=== PATIENT | female | born 1965 | race Caucasian/White ===

== ENCOUNTER 2018-09-26 00:10 | Observation (INO) | payer SELFPAY ==
[2018-09-26 00:36] VITALS: BMI 34.8
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
[2018-09-26] MEDS ORDERED: ACETAMINOPHEN 325 MG TABLET (FP) PO ONE (00:59)
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
[2018-09-26] MEDS ORDERED: ACETAMINOPHEN 325 MG TABLET (FP) ONE (01:03)
[2018-09-26] MEDS ORDERED: morphine CARPU-JECT 4 MG/1 ML DISP.SYRIN IVPUSH ONE (01:59)
[2018-09-26] MEDS ORDERED: morphine SULFATE 4 MG/ML VIAL ONE (02:04)
[2018-09-26 02:15] LABS: HEMATOCRIT 36.4 % (32.4-45.2); HEMOGLOBIN 12.5 GM/dL (10.7-15.3); MCH 31.3 pg (25.7-33.7); MCHC 34.3 g/dl (32.0-36.0); MEAN CELL VOLUME 91.3 fl (80-96); MEAN PLT VOLUME 8.2 fl (7.5-11.1); PLATELET COUNT 227 K/MM3 (134-434); RBC 3.99 M/mm3 (3.60-5.2); RDW 12.9 % (11.6-15.6); WHITE BLOOD COUNT 5.6 K/mm3 (4.0-10.0)
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
[2018-09-26 02:43] LABS: ALK PHOS 109 U/L (45-117); ANION GAP 7 MMOL/L (8-16); BILIRUBIN,TOTAL 0.7 mg/dL (0.2-1); BLOOD UREA NITROGEN 8 mg/dL (7-18); CALCIUM 9.2 mg/dL (8.5-10.1); CHLORIDE 105 mmol/L (98-107); CO2 26 mmol/L (21-32); CREATININE 0.4 mg/dL (0.55-1.3); GLUCOSE,RANDOM 108 mg/dL (74-106); POTASSIUM 3.6 mmol/L (3.5-5.1); SGOT/AST 89 U/L (15-37); SGPT/ALT 123 U/L (13-61); SODIUM 138 mmol/L (136-145); TOT PROT 7.7 g/dl (6.4-8.2)
[2018-09-26] MEDS ORDERED: MORPHINE SULFATE 2 MG/ML VIAL IVPUSH PRN (03:16)
[2018-09-26] MEDS ORDERED: IBUPROFEN 600 MG TABLET (FP) PO PRN (03:16)
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
--- NOTE | 2018-09-26 10:12 | CONSULT ---
Consult - text type - Consultation Consultation Note: ORTHOPEDIC SURGERY CONSULTATION NOTE Department of Orthopedic Surgery HISTORY OF PRESENT ILLNESS Mily Orellana is a 53 year old left hand dominant female who presents to [facility] with left shoulder pain. The orthopedic service was consulted for left sided clavicle fracture. The injury occurred yesterday after a fall. The patient notes pain over the clavicle. Denies any other injuries. Denies head trauma or LOC. Denies shortness of breath, numbness, tingling or other constitutional complaints. Denies tobacco use, drug use, alcohol abuse. The patient lives with her sister and uses no assistive devices at baseline. Active Problems Problem Status Category Onset Closed left clavicular fracture Acute Medical Left shoulder pain Acute Medical Social History Smoking history Never smoked Hx Alcohol Use No Allergies Allergy/AdvReac Type Severity Reaction Status Date / Time No Known Allergies Allergy Verified 09/26/18 00:48 Active Medications Generic Name Dose Route Start Last Admin Trade Name Freq PRN Reason Stop Dose Admin Ibuprofen 600 mg 09/26/18 03:16 Motrin - PO Q8H PRN Pain Level 4 - 7 Morphine Sulfate 2 mg 09/26/18 03:16 09/26/18 07:50 Morphine Sulfate IVPUSH 2 mg Q4H PRN Administration PAIN LEVEL 7 - 10 Vital Signs (last) Temp Pulse Resp BP Pulse Ox 97.8 F 64 17 118/70 97 09/26/18 04:43 09/26/18 04:43 09/26/18 04:43 09/26/18 04:43 09/26/18 04:43 Intake and Output 09/24/18 09/25/18 09/26/18 23:59 23:59 23:59 Other: Voiding Method Toilet # Unmeasured Voids Void 1 Weight 161 lb Height 4 ft 9 in Body Mass Index (BMI) 34.8 Weight Measurement Method Standing Scale Laboratory 09/26/18 02:05 09/26/18 02:05 FAMILY HISTORY Unknown REVIEW OF SYMPTOMS A twelve-point review of systems was performed and was negative except as noted in HPI. PHYSICAL EXAM Constitutional: Alert and oriented to person, place, and time. Appears well- developed and well-nourished. No acute distress, appropriate mood and affect. HEENT: Normocephalic, atraumatic Cardiovascular: Regular rate and rhythm, extremities warm, no cyanosis. Pulmonary: Breathing comfortably, normal air movement, no audible wheezing. Right Upper Extremity: No tenderness to palpation. Full passive and active ROM, free from pain. Left Upper Extremity: Swelling and ecchymosis present over the clavicle and anterior chest wall. Skin warm, dry, and intact; no skin tenting. No rashes or ulcers noted. Muscle mass equal and symmetric to contralateral side. No atrophy noted. Tender to palpation at left clavicle; nontender throughout rest of extremity. Full passive and active ROM, free from pain. Joints stable with no pathologic laxity. M/R/U/MSK/AX motor intact; SILT distally; 2+ radial pulses; Cap refill brisk. Right Lower Extremity: No tenderness to palpation. Full passive and active ROM, free from pain. Left Lower Extremity: No tenderness to palpation. Full passive and active ROM, free from pain. IMAGING I personally reviewed radiographs of the left shoulder and clavicle. They demonstrate a comminuted and displaced midshaft clavicle fracture. ASSESSMENT AND PLAN Mily Orellana is a 53 year old female presenting status post fall with a nondominant left sided clavicle fracture. We have reviewed the imaging and clinical findings in detail, as well as their potential implications. We discussed operative and nonoperative treatment in detail, as well as the risks and benefits of each. After informed discussion the patient has elected to proceed with nonoperative management. - No orthopedic intervention at this time. - Non weight bearing on LUE - Patient was instructed regarding signs and symptoms of compartment syndrome and need to seek immediate care should new onset difficulty breathing, numbness , tingling, or significantly increasing pain occur.. - Maintain sling - Avoid NSAID medications All questions were answered. Thank you for involving our team in the care of this patient. Please have patient follow up in our office in 1 week .
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
[2018-09-26 14:11] VITALS: BP 135/88; PULSE 77; TEMP 98.3
--- NOTE | 2018-09-26 19:51 | DS ---
Physical Exam: SUBJECTIVE: Patient seen and examined Patient is a 53yo Female with no PMHx presented to Ed. for having left shoulder pain. Patient stated that she a mechanical fall on a bus on her left side. Patient c/o having left shoulder pain in a sling. was seen by the orthopedic MD this morning. translated by Nico deputy [employer] marshal who speaks fluent Frisian. OBJECTIVE: Vital Signs Temperature 98.3 F 09/26/18 14:10 Pulse Rate 77 09/26/18 14:10 Respiratory Rate 20 09/26/18 09:15 Blood Pressure 135/88 09/26/18 14:10 O2 Sat by Pulse Oximetry (%) 95 09/26/18 10:32 Initial Vital Signs Temp Pulse Resp BP Pulse Ox 98.2 F 90 20 165/95 99 09/26/18 00:23 09/26/18 00:23 09/26/18 00:23 09/26/18 00:23 09/26/18 00:23 GENERAL: The patient is awake, alert, and fully oriented, in no acute distress. HEAD: Normal with no signs of trauma. EYES: PERRL, extraocular movements intact, sclera anicteric, conjunctiva clear. ENT: Ears normal, oropharynx clear without exudates, moist mucous membranes. NECK: Trachea midline, supple. decreased ROM of left shoulder/clavicle due to fracture. LUNGS: Breath sounds equal, clear to auscultation bilaterally, no wheezes, no crackles, no accessory muscle use. HEART: Regular rate and rhythm, S1, S2 without murmur, rub or gallop. ABDOMEN: Soft, nontender, nondistended, normoactive bowel sounds, no guarding, no rebound, no hepatosplenomegaly, no masses. EXTREMITIES: 2+ pulses, warm, well-perfused, no edema. Right Upper Extremity: No tenderness to palpation. Full passive and active ROM, Left Upper Extremity: Swelling and ecchymosis present over the clavicle and anterior chest wall. No atrophy noted. Tender to palpation at left clavicle. NEUROLOGICAL: Cranial nerves II through XII grossly intact. Normal speech, gait is steady. PSYCH: Normal mood, normal affect. SKIN: Warm, dry, normal turgor, no rashes or lesions noted. LABS CBCD WBC 5.6 K/mm3 (4.0-10.0) 09/26/18 02:05 RBC 3.99 M/mm3 (3.60-5.2) 09/26/18 02:05 Hgb 12.5 GM/dL (10.7-15.3) 09/26/18 02:05 Hct 36.4 % (32.4-45.2) 09/26/18 02:05 MCV 91.3 fl (80-96) 09/26/18 02:05 MCHC 34.3 g/dl (32.0-36.0) 09/26/18 02:05 RDW 12.9 % (11.6-15.6) 09/26/18 02:05 Plt Count 227 K/MM3 (134-434) 09/26/18 02:05 MPV 8.2 fl (7.5-11.1) 09/26/18 02:05 CMP Sodium 138 mmol/L (136-145) 09/26/18 02:05 Potassium 3.6 mmol/L (3.5-5.1) 09/26/18 02:05 Chloride 105 mmol/L (98-107) 09/26/18 02:05 Carbon Dioxide 26 mmol/L (21-32) 09/26/18 02:05 Anion Gap 7 MMOL/L (8-16) L 09/26/18 02:05 BUN 8 mg/dL (7-18) 09/26/18 02:05 Creatinine 0.4 mg/dL (0.55-1.3) L 09/26/18 02:05 Creat Clearance w eGFR 166.34 (>60) 09/26/18 02:05 Random Glucose 108 mg/dL (74-106) H 09/26/18 02:05 Calcium 9.2 mg/dL (8.5-10.1) 09/26/18 02:05 Total Bilirubin 0.7 mg/dL (0.2-1) 09/26/18 02:05 AST 89 U/L (15-37) H 09/26/18 02:05 ALT 123 U/L (13-61) H 09/26/18 02:05 Alkaline Phosphatase 109 U/L (45-117) 09/26/18 02:05 Total Protein 7.7 g/dl (6.4-8.2) 09/26/18 02:05 Albumin 4.0 g/dl (3.4-5.0) 09/26/18 02:05 Home Medications Medication Instructions Recorded Oxycodone HCl 5 mg PO Q4H #18 tablet MDD 6 09/26/18 Current Medications Generic Name Dose Route Start Last Admin Trade Name Freq PRN Reason Stop Dose Admin Ibuprofen 600 mg 09/26/18 03:16 Motrin - PO Q8H PRN Pain Level 4 - 7 Morphine Sulfate 2 mg 09/26/18 03:16 09/26/18 07:50 Morphine Sulfate IVPUSH 2 mg Q4H PRN Administration PAIN LEVEL 7 - 10 CXr: clear lungs , left clavicular fracture as per radiology Xray of left shoulder and clavicles: Left shoulder comminuted clavicular fracture with seperation of major fragments. #left clavicular mid shaft fracture ; Ac joint is intact HOSPITAL COURSE: Date of Admission:09/26/18 Date of Discharge: 09/26/18 # Left shoulder comminuted clavicular fracture with seperation of major fragments. #left clavicular mid shaft fracture ; Ac joint is intact discussed with ortho in details, patient can go home since managment is conservatively on oxycodone if doesn't imptove then might need surgery follow up an appointment was given within a week - No orthopedic intervention at this time. - Non weight bearing on LUE - Patient was instructed regarding signs and symptoms of compartment syndrome and need to seek immediate care should new onset difficulty breathing, numbness , tingling, or significantly increasing pain occur.. - Maintain sling - Avoid NSAID medications follow up in ortho office in 1 week [phone]. Minutes to complete discharge: 40 Discharge Summary Reason For Visit: CLOSED FRACTURE OF LEFT CLAVICLE Condition: Stable - Instructions Diet, Activity, Other Instructions: Keep the sling on at all the time. prescribed an oral pain medication Oxycodone 5mg every 4 hours as needed for pain, this medication will make you drowsy, please do not drive or operate any machinary. You will follow with orthopedic doctor within a week to reassess your improvement and he will also do an shoulder Xray to check the healing process. Also will re-evaluate if you need surgery or not. At this time you are managed conservatively. If you develop severe pain, numbness or tingling, come back to the emergency room and also call the orthopedic doctor that you saw in the hospital. The name and address is provided to you. Please drink lots of fluid/water. since your liver enzymes are elevated. Do not take Tylenol at this time can worsen your liver enzymes. Referrals: Omi Larsen DO [Staff Physician] - 1 Week Disposition: HOME - Home Medications Comprehensive Discharge Medication List: Ambulatory Orders Oxycodone HCl 5 mg PO Q4H #18 tablet MDD 6 09/26/18
--- NOTE | 2018-09-28 10:25 | EKG ---
Test Reason : Blood Pressure : / mmHG Vent. Rate : 071 BPM Atrial Rate : 071 BPM P-R Int : 140 ms QRS Dur : 078 ms QT Int : 402 ms P-R-T Axes : 041 -03 011 degrees QTc Int : 436 ms NORMAL SINUS RHYTHM INFERIOR INFARCT , AGE UNDETERMINED ABNORMAL ECG WHEN COMPARED WITH ECG OF 30-SEP-2000 22:41, INFERIOR INFARCT IS NOW PRESENT T WAVE VARIATION Confirmed by BISHNU GARZON, MIR ([id number]) on 09/28/2018 10:25:06 AM Referred By: Confirmed By:MIR GOETZ MD
== END 2018-09-26 17:40 | disposition home or self-care (01) ==
LOC: JER 00:10 → JERBED 02:28 → J6S 04:29
PROVIDERS: ADMIT Internal Medicine; ATTEND Internal Medicine
PROC: 3E033NZ Introduction of Analgesics, Hypnotics, Sedatives into Peripheral Vein, Percutaneous Approach (ICD-10-PCS; principal; 2018-09-26)
DX: S42.022A Displaced fracture of shaft of left clavicle, initial encounter for closed fracture (principal); W18.09XA Striking against other object with subsequent fall, initial encounter; Y93.I9 Activity, other involving external motion; Y92.488 Other paved roadways as the place of occurrence of the external cause
CPT/HCPCS: 36415; 71045-TC-FY; 73000-TC-LT-FY; 73030-TC-LT-FY; 80053; 85027; 93005; 93010; 99285-25; G0378

== ENCOUNTER 2019-01-05 16:04 | Emergency (ER) | payer OTHER ==
[2019-01-05 16:26] VITALS: BP 154/88; PULSE 77; TEMP 98.3; BMI 32.4
[2019-01-05] MEDS ORDERED: SODIUM CHLORIDE 1,000 ML IV STA (16:26)
[2019-01-05] MEDS ORDERED: ONDANSETRON 4 MG/2 ML VIAL IVPUSH ONE (16:26)
[2019-01-05] MEDS ORDERED: MECLIZINE HCL 25 MG TABLET (FP) PO ONE (16:26)
--- NOTE | 2019-01-05 16:30 | PDOC ---
Rapid Medical Evaluation Chief Complaint: Headache Time Seen by Provider: 01/05/19 16:23 Medical Evaluation: Allergies Allergy/AdvReac Type Severity Reaction Status Date / Time No Known Allergies Allergy Verified 01/05/19 16:24 Vital Signs Temp Pulse Resp BP Pulse Ox 98.3 F 77 16 154/88 97 01/05/19 16:24 01/05/19 16:24 01/05/19 16:24 01/05/19 16:24 01/05/19 16:24 01/05/19 16:29 Pt c/o: dizziness with nausea since this am, feels as if room is spinning, also c/o mild gen throbbing headache Pt on brief exam: vss, no acute distress Pt ordered for: labs, ekg, head ct, urine, meclizine, ivf, and zofran Pt to proceed to the ED Discharge Disposition - Diagnosis Dizziness - Referrals - Patient Instructions - Post Discharge Activity
--- NOTE | 2019-01-05 20:37 | PDOC ---
*Physical Exam - Vital Signs Last Vital Signs Temp Pulse Resp BP Pulse Ox 98.3 F 77 16 154/88 97 01/05/19 16:24 01/05/19 16:24 01/05/19 16:24 01/05/19 16:24 01/05/19 16:24 ED Treatment Course - LABORATORY CBC & Chemistry Diagram: 01/05/19 22:20 01/05/19 22:20 Medical Decision Making - Medical Decision Making 01/05/19 20:36 Patient seen by the advanced practice provider under my direct supervision. Ancillary testing reviewed as necessary. I agree with plan as outlined by the advanced practice provider. *DC/Admit/Observation/Transfer Diagnosis at time of Disposition: Headache Qualifiers: Headache type: unspecified Headache chronicity pattern: acute headache Intractability: not intractable Qualified Code(s): R51 - Headache Hypertension Qualifiers: Hypertension type: essential hypertension Qualified Code(s): I10 - Essential ( primary) hypertension - Referrals - Patient Instructions - Post Discharge Activity
--- NOTE | 2019-01-05 21:25 | PDOC ---
History of Present Illness - General Chief Complaint: Headache Stated Complaint: HYPERTENSION Time Seen by Provider: 01/05/19 16:23 History Source: Patient - History of Present Illness Initial Comments: 01/05/19 21:41 53 year old female c/o headache and dizziness with elevated blood pressure. reports feeling better since being here. history of hypertension , does not have a primary care provider. Past History - Past Medical History Allergies/Adverse Reactions: Allergies Allergy/AdvReac Type Severity Reaction Status Date / Time No Known Allergies Allergy Verified 01/05/19 16:24 Home Medications: Ambulatory Orders Oxycodone HCl 5 mg PO Q4H #18 tablet MDD 6 09/26/18 Amlodipine Besylate [Norvasc -] 5 mg PO DAILY #7 tablet 01/05/19 COPD: No - Immunization History Immunization Up to Date: Yes - Suicide/Smoking/Psychosocial Hx Smoking History: Never smoked Hx Alcohol Use: No Drug/Substance Use Hx: No Review of Systems - Review of Systems Able to Perform ROS?: Yes Is the patient limited Croatian proficient: No : No: Symptoms Reported, See HPI, Burning, Dysuria, Discharge, Frequency, Flank Pain, Hematuria, Incontinence, Pain, Urgency, Testicular Mass, Testicular Swelling, Lesions, Testicular Pain, Other Musculoskeletal: No: Symptoms Reported, See HPI, Back Pain, Gout, Joint Pain, Joint Swelling, Muscle Pain, Muscle Weakness, Neck Pain, Joint Stiffness, Other Integumentary: No: Symptoms Reported, See HPI, Bruising, Change in Color, Change in Hair/Nails, Dryness, Erythema, Flushing, Lesions, Lumps, Pallor, Pruritus, Rash, Sweating, Other Neurological: Yes: Headache, Dizziness *Physical Exam - Vital Signs Last Vital Signs Temp Pulse Resp BP Pulse Ox 98.3 F 77 16 154/88 97 01/05/19 16:24 01/05/19 16:24 01/05/19 16:24 01/05/19 16:24 01/05/19 16:24 - Physical Exam General Appearance: Yes: Appropriately Dressed Respiratory/Chest: positive: Lungs Clear, Normal Breath Sounds Cardiovascular: positive: Regular Rhythm, Regular Rate Gastrointestinal/Abdominal: positive: Normal Bowel Sounds, Soft. negative: Tender (nontender) Extremity: positive: Normal Capillary Refill, Normal Inspection Neurologic: positive: production assistant II-XII NML intact, Fully Oriented, Alert, Normal Mood/ Affect, Motor Strength 11/01 ED Treatment Course - LABORATORY CBC & Chemistry Diagram: 01/05/19 22:20 01/05/19 22:20 Progress Note - Progress Note Progress Note: A: headache likely essential hypertension P: cbc cmp : LFTS elevated (discussed to follow up in clinic, patient has no abdominal pain ct head: wnl *DC/Admit/Observation/Transfer Diagnosis at time of Disposition: Headache Qualifiers: Headache type: unspecified Headache chronicity pattern: acute headache Intractability: not intractable Qualified Code(s): R51 - Headache Hypertension Qualifiers: Hypertension type: essential hypertension Qualified Code(s): I10 - Essential ( primary) hypertension - Discharge Dispostion Disposition: HOME - Prescriptions Prescriptions: Amlodipine Besylate [Norvasc -] 5 mg PO DAILY #7 tablet - Referrals Referrals: Kevin Zavala MD [Staff Physician] - Call tomorrow [facility] [Outside] - Call tomorrow - Patient Instructions Printed Discharge Instructions: DI for High Blood Pressure Additional Instructions: It Is important that he follow-up with the primary care physician. You were given a prescription for Norvasc for 7 days you need to continue taking these medication however you have to follow-up with your doctor . You were noted to have elevations in your liver test. This has to be followed up also with the primary care physician. Additional Instructions: * Please call your personal physician to report your Emergency Department visit and to report your progress, if any. * If there is no improvement in symptoms in 2 days call your physician. * Return to the Emergency Department for any worsening symptoms. - Post Discharge Activity Forms/Work/School Notes: Back to Work
[2019-01-05] MEDS ORDERED: amLODIPine BESYLATE 5 MG TABLET (FP) PO ONE (21:26)
[2019-01-05 22:33] LABS: BASO % 0.7 % (0-2.0); EOS % 4.3 % (0-4.5); HEMATOCRIT 37.9 % (32.4-45.2); HEMOGLOBIN 12.9 GM/dL (10.7-15.3); LYMPH % 33.9 % (8-40); MCHC 34.1 g/dl (32.0-36.0); MEAN CELL VOLUME 90.9 fl (80-96); MEAN PLT VOLUME 7.8 fl (7.5-11.1); MONO % 7.3 % (3.8-10.2); NEUT % 53.8 % (42.8-82.8); PLATELET COUNT 222 K/MM3 (134-434); RBC 4.17 M/mm3 (3.60-5.2); RDW 13.2 % (11.6-15.6)
[2019-01-05 23:06] LABS: ALBUMIN 3.9 g/dl (3.4-5.0); ALK PHOS 125 U/L (45-117); ANION GAP 5 MMOL/L (8-16); BILIRUBIN,TOTAL 0.5 mg/dL (0.2-1); BLOOD UREA NITROGEN 6.8 mg/dL (7-18); CALCIUM 8.8 mg/dL (8.5-10.1); CHLORIDE 109 mmol/L (98-107); CO2 28 mmol/L (21-32); CREATININE 0.5 mg/dL (0.55-1.3); GLUCOSE,RANDOM 117 mg/dL (74-106); POTASSIUM 3.7 mmol/L (3.5-5.1); SGOT/AST 104 U/L (15-37); SGPT/ALT 128 U/L (13-61); SODIUM 142 mmol/L (136-145); TOT PROT 7.6 g/dl (6.4-8.2)
[2019-01-05] MEDS ORDERED: amLODIPine BESYLATE 5 MG TABLET (FP) ONE (23:11)
[2019-01-05 23:22] LABS: EPI CELLS 0.4 /HPF (0-5/HPF); HYALINE CASTS 0 /lpf (0-8); PH,URINE 6.5 (5.0-8.0); URINE APPEARANCE CLEAR; URINE BACTERIA 3.7 /hpf (NEGATIVE); URINE BILIRUBIN NEGATIVE (NEGATIVE); URINE COLOR YELLOW; URINE GLUCOSE (UA) NEGATIVE (NEGATIVE); URINE KETONE NEGATIVE (NEGATIVE); URINE LEUK ESTERASE TRACE (NEGATIVE); URINE NITRITE NEGATIVE (NEGATIVE); URINE PROTEIN NEGATIVE (NEGATIVE); URINE RBC 1 /hpf (0-4); URINE WBC 2 /hpf (0-5)
--- NOTE | 2019-01-06 08:33 | EKG ---
Test Reason : Blood Pressure : / mmHG Vent. Rate : 065 BPM Atrial Rate : 065 BPM P-R Int : 144 ms QRS Dur : 082 ms QT Int : 422 ms P-R-T Axes : 025 035 047 degrees QTc Int : 438 ms NORMAL SINUS RHYTHM NORMAL ECG WHEN COMPARED WITH ECG OF 26-SEP-2018 02:15, CRITERIA FOR INFERIOR INFARCT ARE NO LONGER PRESENT T WAVE INVERSION NO LONGER EVIDENT IN INFERIOR LEADS Confirmed by DEWEY GARZON, JAMEL ([id number]) on 01/06/2019 8:33:14 AM Referred By: Confirmed By:JAMEL PALOMO MD
== END 2019-01-06 00:20 | disposition home or self-care (01) ==
LOC: JER 16:04
DX: R42 Dizziness and giddiness (principal)
CPT/HCPCS: 36415; 70450-TC; 71045-TC-FY; 80053; 81003; 82550; 82553; 84484; 85025; 93005; 93010; 99281-25